=== PATIENT | male | born 1975 | race Two or more races ===

== ENCOUNTER 2024-07-08 20:42 | Emergency (ER) | payer SELFPAY ==
[~2024-07-08] VITALS: Ht 167.6 cm; Wt 95.3 kg
[2024-07-08 20:51] VITALS: BP 120/74; PULSE 94; RESP 22; TEMP 97.6; O2SAT 99
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
== END 2024-07-09 00:41 | disposition left against medical advice (07) ==
LOC: ER 20:42 → EDBD 20:42 → ER 07-09 00:41
DX: S40.012A Contusion of left shoulder, initial encounter (principal); R51.9 Headache, unspecified; Z98.890 Other specified postprocedural states; Z79.899 Other long term (current) drug therapy; X58.XXXA Exposure to other specified factors, initial encounter; Y93.89 Activity, other specified; Y92.89 Other specified places as the place of occurrence of the external cause; Y99.8 Other external cause status

== ENCOUNTER 2024-07-09 05:06 | Emergency (ER) | payer MEDICAID ==
[~2024-07-09] VITALS: Ht 167.6 cm; Wt 92.2 kg
[2024-07-09 05:25] VITALS: BP 133/81; PULSE 78; RESP 14; TEMP 97.7; O2SAT 100
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
--- NOTE | 2024-07-09 08:10 | DVH ---
CLINICAL INDICATION: Pain TECHNIQUE: XY L SCAPULA COMPLETE XRAY Comparison: None FINDINGS/IMPRESSION: : There is no evidence of acute fracture or dislocation. Soft tissues are unremarkable.
== END 2024-07-09 08:48 | disposition home or self-care (01) ==
LOC: ER 05:06
DX: M25.512 Pain in left shoulder (principal); Z98.890 Other specified postprocedural states; Y04.8XXA Assault by other bodily force, initial encounter; Y93.89 Activity, other specified; Y92.89 Other specified places as the place of occurrence of the external cause; Y99.8 Other external cause status
CPT/HCPCS: 73010